=== PATIENT | male | born 1990 | race Caucasian/White ===

== ENCOUNTER 2021-12-01 10:28 | Emergency (ER) | payer OTHER ==
--- NOTE | 2021-12-01 10:33 | ERPHSYRPT ---
- History of Present Illness Time Seen by Provider: 12/01/21 10:33 Source: patient Exam Limitations: no limitations Physician History: This 31-year-old white male who has chronic dental caries and chronic poor dentition. His entire upper teeth are necrotic and tender. Pain has worsened in the last several days. He has been on Tylenol and ibuprofen which have not helped. Timing/Duration: gradual onset, persistent Severity: mild (To moderate) ENT Location: dental Prearrival Treatment: over the counter meds Associated Symptoms: tooth pain Allergies/Adverse Reactions: bupropion [From Wellbutrin] Allergy (Verified 12/01/21 10:54) Home Medications: Buspirone HCl 5 mg [Buspar 5 mg] 1 ea DAILY 12/01/21 [History] Famotidine 20 mg [Pepcid 20 MG] 1 ea DAILY 12/01/21 [History] Olanzapine 5 mg [zyPREXA 5MG TABLET] 1 ea DAILY 12/01/21 [History] PANTOPRAZOLE 40 mg Tablet [Protonix 40MG Tablet] 1 ea DAILY 12/01/21 [History] Sucralfate 1 ea ACHS 12/01/21 [History] Travel Risk - International Travel Have you traveled outside of the country in past 3 weeks: No - Coronavirus Screening Are you exhibiting any of the following symptoms?: No Close contact with a COVID-19 positive Pt in past 14-21 Days: No - Review of Systems Constitutional: No Symptoms Eyes: No Symptoms Ears, Nose, & Throat: Other (Upper dental pain) Respiratory: No Symptoms Cardiac: No Symptoms Abdominal/Gastrointestinal: No Symptoms Genitourinary Symptoms: No Symptoms Musculoskeletal: No Symptoms Skin: No Symptoms Neurological: No Symptoms Psychological: No Symptoms Endocrine: No Symptoms Hematologic/Lymphatic: No Symptoms Immunological/Allergic: No Symptoms All Other Systems: Reviewed and Negative - Past Medical History Pertinent Past Medical History: Yes - Past Surgical History Past Surgical History: Yes Significant Family History: no pertinent family hx - Nursing Vital Signs Nursing Vital Signs: Initial Vital Signs Temperature 96.7 F 12/01/21 10:53 Pulse Rate 88 12/01/21 10:53 Respiratory Rate 18 12/01/21 10:53 Blood Pressure 150/95 12/01/21 10:53 O2 Sat by Pulse Oximetry 95 12/01/21 10:53 Pain Scale Pain Intensity 5 - Physical Exam General Appearance: no apparent distress, alert, anxiety Eye Exam: bilateral eye: normal inspection, PERRL, EOMI Ear Exam: bilateral ear: auricle normal Nasal Exam: normal inspection Throat Exam: pharynx normal, dental tenderness (Entire upper row of teeth are necrotic with evidence of gingivitis) Neck Exam: normal inspection, non-tender, supple, full range of motion Cardiovascular/Respiratory Exam: chest non-tender, no respiratory distress Abdominal Exam: non-tender Neurologic Exam: alert, oriented x 3, cooperative, deputy clerk II-XII nml as tested, normal mood/affect, nml cerebellar function, nml station & gait, sensation nml Skin Exam: normal color, warm, dry SpO2 Interpretation: normal O2 Delivery: Room Air - Course Nursing assessment & vital signs reviewed: Yes - Progress Progress: unchanged, pain not gone completely Counseled pt/family regarding: diagnosis, need for follow-up - Departure Departure Disposition: Home Clinical Impression: Dental caries, Pain due to dental caries Condition: Stable Critical Care Time: No Referrals: GIN HERRMANN MD [Primary Care Provider] - Follow up/PCP as directed Additional Instructions: Follow-up with a dentist for definitive care. Ibuprofen 600 mg orally with food 3 times a day. Take medication as prescribed. Prescriptions: Hydrocodone/APAP 5/325 [[place] 5/325 mg] 1 each PO Q8H PRN PRN #5 tablet MDD 3 PRN Reason: Pain Amoxicillin 500 mg Cap [Amoxil 500 mg] 500 mg PO TID #30 cap
[2021-12-01 10:54] VITALS: BP 150/95; PULSE 88; O2SAT 95
== END 2021-12-01 11:27 | disposition home or self-care (01) ==
LOC: ED 10:28
DX: K02.9 Dental caries, unspecified (principal); Z79.891 Long term (current) use of opiate analgesic
CPT/HCPCS: 99283

== ENCOUNTER 2021-12-08 16:04 | Emergency (ER) | payer OTHER ==
[2021-12-08 16:17] VITALS: O2SAT 95
--- NOTE | 2021-12-08 16:48 | ERPHSYRPT ---
- History of Present Illness Time Seen by Provider: 12/08/21 16:45 Source: patient Exam Limitations: no limitations Patient Subjective Stated Complaint: pt here for a sore throat for a couple days Triage Nursing Assessment: pt alert, resp easy, skin w/d/p. face mask applied, Physician History: Patient is a 31-year-old white male who presents with a complaint of a severe sore throat. He had an episode of strep screen positive pharyngitis approximately 1 month ago was treated with erythromycin and did well until a couple days ago. Timing/Duration: yesterday Severity: moderate ENT Location: throat Prearrival Treatment: no prearrival treatment Modifying Factors: Improves With: nothing Associated Symptoms: No fever Allergies/Adverse Reactions: bupropion [From Wellbutrin] Allergy (Verified 12/01/21 10:54) Home Medications: Buspirone HCl 5 mg [Buspar 5 mg] 1 ea DAILY 12/01/21 [History] Famotidine 20 mg [Pepcid 20 MG] 1 ea DAILY 12/01/21 [History] Olanzapine 5 mg [zyPREXA 5MG TABLET] 1 ea DAILY 12/01/21 [History] PANTOPRAZOLE 40 mg Tablet [Protonix 40MG Tablet] 1 ea DAILY 12/01/21 [History] Sucralfate 1 ea ACHS 12/01/21 [History] Hx Tetanus, Diphtheria Vaccination/Date Given: No Hx Influenza Vaccination/Date Given: Yes Hx Pneumococcal Vaccination/Date Given: No Immunizations Up to Date: Yes Travel Risk - International Travel Have you traveled outside of the country in past 3 weeks: No - Coronavirus Screening Are you exhibiting any of the following symptoms?: No Close contact with a COVID-19 positive Pt in past 14-21 Days: No - Vaccine Status Have you recieved a Covid-19 vaccination: No - Review of Systems Constitutional: No Fever, No Chills Eyes: No Symptoms Ears, Nose, & Throat: No Symptoms, Throat Pain, Throat Swelling, Painful Swallowing Respiratory: No Cough, No Dyspnea Cardiac: No Chest Pain, No Edema, No Syncope Abdominal/Gastrointestinal: No Abdominal Pain, No Nausea, No Vomiting, No Diarrhea Genitourinary Symptoms: No Dysuria Musculoskeletal: No Back Pain, No Neck Pain Skin: No Rash Neurological: No Dizziness, No Focal Weakness, No Sensory Changes Psychological: No Symptoms Endocrine: No Symptoms All Other Systems: Reviewed and Negative - Past Medical History Pertinent Past Medical History: Yes Psycho-Social History: Depression - Past Surgical History Past Surgical History: Yes - Social History Smoking Status: Current every day smoker Exposure to second hand smoke: Yes Drug Use: none Patient Lives Alone: Yes Significant Family History: no pertinent family hx - Nursing Vital Signs Nursing Vital Signs: Initial Vital Signs Temperature 98.7 F 12/08/21 16:16 Pulse Rate 104 H 12/08/21 16:16 Respiratory Rate 18 12/08/21 16:16 O2 Sat by Pulse Oximetry 95 12/08/21 16:16 Pain Scale Pain Intensity 2 - Physical Exam General Appearance: no apparent distress, alert Eye Exam: bilateral eye: PERRL, EOMI Ear Exam: bilateral ear: auricle normal, canal normal, TM normal Nasal Exam: normal inspection Throat Exam: moist mucus membranes, pharynx swelling, pharynx tenderness, No tonsillar exudate Neck Exam: supple Cardiovascular/Respiratory Exam: normal breath sounds, regular rate/rhythm Abdominal Exam: non-tender, soft Neurologic Exam: alert, oriented x 3, sensation nml, No motor deficits Skin Exam: normal color, warm, dry SpO2 Interpretation: normal SpO2: 95 O2 Delivery: Room Air - Course Nursing assessment & vital signs reviewed: Yes Ordered Tests: Active Orders 24 hr Category Date Time Status COVID AG-BINAX NOW RAPID TEST Stat Lab 12/08/21 16:15 Completed Lab/Rad Data: Laboratory Results 12/08/21 12/08/21 Range/Units 16:15 16:15 SARS-CoV-2 Ag (Rapid) NEGATIVE (NEGATIVE) Group A Strep Antibody NOT DETECTED (NEGATIVE) - Progress Progress: unchanged - Departure Departure Disposition: Home Clinical Impression: Cellulitis of pharynx Condition: Stable Critical Care Time: No Referrals: MELIA FORBES [Primary Care Provider] - Follow up/PCP as directed Instructions: Sore Throat, Adult (DC) Prescriptions: Cephalexin Mh 500 mg [Keflex 500 mg] 500 mg PO TID #21 cap
[2021-12-08 16:52] LABS: COVID AG -BINAX NOW RAPID TEST NEGATIVE (NEGATIVE)
[2021-12-08 17:11] VITALS: BP 108/66; PULSE 84
== END 2021-12-08 17:10 | disposition home or self-care (01) ==
LOC: ED 16:04
DX: J39.1 Other abscess of pharynx (principal); Z72.0 Tobacco use; Z79.899 Other long term (current) drug therapy
CPT/HCPCS: 87651; 99000; 99283

== ENCOUNTER 2021-12-21 13:17 | Emergency (ER) | payer OTHER | END 2021-12-21 13:31 | disposition left against medical advice (07) | LOC: ED 13:17 | DX: Z53.9 Procedure and treatment not carried out, unspecified reason (principal) ==

== ENCOUNTER 2021-12-21 18:00 | Emergency (ER) | payer SELFPAY ==
[2021-12-21 18:18] VITALS: BP 141/93; PULSE 95; O2SAT 97
[2021-12-21] MEDS ORDERED: Naprosyn 500 MG PO ONE (18:26)
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
== END 2021-12-21 19:04 | disposition home or self-care (01) ==
LOC: ED 18:00
DX: R51.9 Headache, unspecified (principal); V48.5XXA Car driver injured in noncollision transport accident in traffic accident, initial encounter; Y92.410 Unspecified street and highway as the place of occurrence of the external cause; Z72.0 Tobacco use; Z79.899 Other long term (current) drug therapy
CPT/HCPCS: 99285; A9270-GY